=== PATIENT | male | born 1960 | race Caucasian/White ===

== ENCOUNTER 2016-10-07 10:17 | Day surgery (SDC) | payer OTHER ==
[~2016-10-07 10:17] MED LIST: CEFAZOLIN SODIUM 2 GRAM PREMIX 100 ML IV ONE; IV START KIT ONE; LACTATED RINGERS 1,000 ML ONE
[2016-10-07] MEDS ORDERED: CEFAZOLIN SODIUM 2 GRAM PREMIX 100 ML IV PRN (10:30)
[2016-10-07] MEDS ORDERED: OPIUM/BELLADONNA ALKALOIDS 1 EACH SUP PR ONE (11:30)
[2016-10-07] MEDS ORDERED: FENTANYL 100 MCG/2 ML VIAL ONE (11:43)
[2016-10-07] MEDS ORDERED: MIDAZOLAM HCL 5 MG/5 ML VIAL ONE ×2 (11:43→12:09)
[2016-10-07] MEDS ORDERED: SPINAL PROCEDURAL TRAY 1 EACH ONE (12:01)
[2016-10-07] MEDS ORDERED: BUPIVACAINE 0.75% SPINAL AMPUL 2 ML ONE (12:01)
[2016-10-07] MEDS ORDERED: ATROPINE SULFATE 0.4 MG/1 ML VIAL IV PRN (12:12)
[2016-10-07] MEDS ORDERED: HYDRALAZINE HCL 20 MG/1 ML VIAL IV PRN (12:12)
[2016-10-07] MEDS ORDERED: MEPERIDINE 25 MG/ML SYRINGE IV PRN (12:12)
[2016-10-07] MEDS ORDERED: NALOXONE HCL 0.4 MG/ML VIAL IV PRN (12:12)
[2016-10-07] MEDS ORDERED: ONDANSETRON 4 MG/2ML 2 ML VIAL IV PRN ×2 (12:12→13:39)
[2016-10-07] MEDS ORDERED: PROMETHAZINE HCL 25 MG/ML VIAL IM PRN (12:12)
[2016-10-07] MEDS ORDERED: MORPHINE SULFATE 4 MG/ML SYRINGE IV PRN ×2 (12:12→14:18)
[2016-10-07] MEDS ORDERED: LACTATED RINGERS 1,000 ML IV SCH (12:15)
[2016-10-07] MEDS ORDERED: OPIUM/BELLADONNA ALKALOIDS 1 EACH SUP PR PRN (13:39)
[2016-10-07] MEDS ORDERED: BLISTEX LIPSTICK 1 EACH TP PRN (13:39)
[2016-10-07] MEDS ORDERED: BISACODYL 10 MG SUP PR PRN (13:39)
[2016-10-07] MEDS ORDERED: MORPHINE SULFATE 2 MG/ML SYRINGE IV PRN (13:39)
[2016-10-07] MEDS ORDERED: MENTHOL/CETYLPYRD 1 EACH LOZENGE PO PRN (13:39)
[2016-10-07 14:03] VITALS: BMI 25.8
[2016-10-07] MEDS ORDERED: MORPHINE SULFATE 10 MG/ML SYRINGE IV PRN (14:19)
--- NOTE | 2016-10-07 14:57 | OP ---
HUANG JAQUEZ [id number] DATE OF OPERATION: October 07, 2016 SURGEON: Kristian Arauz M.D. CLINICAL STUDIES SPECIALIST: None. ANESTHESIA: Spinal. PREOPERATIVE DIAGNOSIS: Chronic severe bladder outlet obstruction due to prostate enlargement. POSTOPERATIVE DIAGNOSES: Chronic severe bladder outlet obstruction due to prostate enlargement. PROCEDURE: TRANSURETHRAL RESECTION OF THE PROSTATE. SPECIMENS: Chips of prostatic tissue. INDICATIONS: A 56-year-old male with a long history of severe lower urinary tract symptoms diagnosed with bladder outlet obstruction and treated with combined medical therapy for more than two years. He has actually had an increase in his lower urinary tract symptoms, and urodynamic studies demonstrated persistence of markedly elevated voiding pressure. Cystoscopically there is a 4 cm prostatic obstruction with elevated bladder neck and moderate trabeculation. His symptom score is severe. He has a chronically slightly elevated PSA with a high free fraction. He has elected surgical intervention. FINDINGS: The urethra is notable only for a slight narrowing at the meatus itself. Prostatic fossa is 4 cm or more in length with lateral and posterior periurethral lobe enlargement, the latter causing a bladder neck elevation and ball valve effect at that level. The trigone is undermined by the posterior ball valve. Ureteral orifices are normally disposed. Bladder wall moderately trabeculated without focal lesions. PROCEDURE: The patient was identified and brought to the operating room where spinal anesthetic was applied. Then he was placed in a dorsal lithotomy position. The genital region was prepared and draped sterilely. The distal urethra was calibrated with Avis sounds and a 28 Argentine resectoscope sheath was introduced with the visual obturator. Findings are as reported above. With saline as an irrigant and a bipolar loop cautery system, we began resection anteriorly, working down the lateral lobes, and then taking down the posterior ball valve and working out toward the verumontanum. Chips of tissue were removed through the resectoscope and bleeding was controlled with cautery. Once the fossa was widely resected, bleeding sufficiently controlled and all chips removed, the resectoscope was withdrawn and a 24 Argentine Mendez catheter passed and left to gravity drainage with 40 mL of water in its balloon. Estimated blood loss 75 mL or less. No early complications. The patient tolerated the procedure well and was taken in stable condition to the post-anesthesia room. cc: Kristian Arauz M.D. Dominick Busby M.D.
[2016-10-07] MEDS: PHENAZOPYRIDINE HCL 200 MG TABLET PO SCH ×2 (16:14→21:03)
[2016-10-07] MEDS ORDERED: SODIUM CHLORIDE 3,000 ML IRRIG.SOLN IR PRN (20:30)
[2016-10-07] MEDS ORDERED: POLYETHYLENE GLYCOL 3350 17 G POWD.SUSP PO SCH (21:00)
[2016-10-07] MEDS: DOCUSATE SODIUM 250 MG CAPSULE PO SCH (21:03)
[2016-10-07] MEDS: HYDROCODONE/ACETAMINOPHEN 5/325MG TABLET PO PRN (22:13)
[2016-10-08] MEDS: HYDROCODONE/ACETAMINOPHEN 5/325MG TABLET PO PRN (03:59)
[2016-10-08 07:47] VITALS: BP 116/74
[2016-10-08] MEDS: DOCUSATE SODIUM 250 MG CAPSULE PO SCH (08:19)
[2016-10-08] MEDS: PHENAZOPYRIDINE HCL 200 MG TABLET PO SCH (08:20)
--- NOTE | 2016-10-10 13:38 | SURGPATH ---
[email or web address] [address] [place] [id number] Patient Name: HUANG JAQUEZ MR#: [id number] : 1960 Gender: M Specimen #: [id number] Collected: 10/07/2016 Received: 10/08/2016 Reported: 10/10/2016 Submitting Phys: DARRICK LA Copy To Phys: [facility] Isabella CACERES Clinical History / Pre-Operative Diagnosis: CHRONIC BLADDER OUTLET OBSTRUCTION Specimen Source / Surgical Procedure Performed: PROSTATE CHIPS HIGH PRIORITY DIAGNOSIS. REQUIRES CLINICAL ATTENTION Interpretation: TRANSURETHRAL RESECTION, PROSTATE CHIPS: - 2 MM FOCUS OF PROSTATIC ADENOCARCINOMA (ROXANNE SCORE 3+3 = 6, GRADE GROUP 1), INVOLVING LESS THAN 1% OF THE SUBMITTED TISSUE (SEE MICROSCOPIC DESCRIPTION). - ASSOCIATED FIBROGLANDULAR HYPERPLASIA. Comment: Pertinent slides from this case have been reviewed at the daily pathology conference where there was agreement with the diagnosis of focal prostatic adenocarcinoma. Electronically Signed Out Seema Carnes M.D. Gross Description: The specimen is received in a formalin filled container labeled with the patient's name and "prostate chips". An aggregate of rubbery zarate tissue fragments is 5.3 x 4.0 x 2.3 cm and 13 g. Totally embedded in cassettes Rangel. Ramon Almodovar Microscopic Description: Sections of the prostate chips show areas of glandular and stromal hyperplasia. In addition, in one out of the approximately 138 chips, there is a small, 2 mm focus of slightly irregular, closely spaced and distorted glands, some of which appear to be lined by cells with prominent nucleoli. This focus is further evaluated using immunohistochemical staining (PIN 4 cocktail). This staining shows loss of the basal cell layer and focally strong luminal staining for racemase. The overall histologic and immunohistochemical findings are consonant with a small focus of adenocarcinoma. (Analyte-specific reagents (ASR) are used in many laboratory tests necessary for standard medical care and generally do not require FDA approval. This test was developed and its performance characteristics determined by [employer]. It has not been cleared or approved by the U.[place]. Food and Drug Administration. [facility] is certified under the Clinical Laboratory Improvement Amendments of 1988 as qualified to perform high complexity clinical laboratory testing. All controls stain as expected.) 1: 40964, 02543 N40.1
== END 2016-10-08 12:25 | disposition home or self-care (01) ==
LOC: SDC 10:17 → MS 13:39 → UNDOADMIN 14:00 → UNDODISIN 10-08 12:25 → SDC 10-08 12:25
PROVIDERS: ATTEND Urology
PROC: 0VT08ZZ Resection of Prostate, Via Natural or Artificial Opening Endoscopic (ICD-10-PCS; principal; 2016-10-07)
DX: C61 Malignant neoplasm of prostate (principal); N40.1 Benign prostatic hyperplasia with lower urinary tract symptoms; N32.0 Bladder-neck obstruction; I97.89 Other postprocedural complications and disorders of the circulatory system, not elsewhere classified
CPT/HCPCS: 52601; A9270 ×8; J3010; J2250 ×2; J7120; J0690